=== PATIENT | male | born 1975 | race Caucasian/White ===

== ENCOUNTER 2019-03-02 17:59 | Emergency (ER) | payer SELFPAY ==
--- NOTE | 2019-03-02 18:26 | EDM.PDOC ---
ED HPI GENERAL MEDICAL PROBLEM - General Chief Complaint: Back Pain or Injury Stated Complaint: back pain Time Seen by Provider: 03/02/19 18:15 Source of Information: Reports: Patient, Significant Other. Denies: Old Records (No [facility] records available) History Limitations: Reports: No Limitations - History of Present Illness INITIAL COMMENTS - FREE TEXT/NARRATIVE: The patient was brought to the emergency room via private automobile by his significant other for evaluation of 10/10 bilateral low back pain and spasms, left greater than right, paresthesias to the knees bilaterally. He denies any recent or previous fall, injury, or neurological deficits. The patient does have a known history of moderate degenerative disc disease by his history. The patient did take 650 mg of Tylenol about 13:00 hours with Biofreeze also used at that time. He was also seen by another provider about 2 months ago and did receive IM Toradol at that time. He has not lost any work from his above symptoms. No recent history of abdominal pain, heartburn, nausea, diarrhea, melena, gross hematochezia, or any food intolerance, including fatty foods, etc.. The patient also denies any recent fever, wheezing, dyspnea, etc. with stable chronic cough secondary to his tobacco use by his history. Note that the patient did wake up yesterday morning at about 8 AM with these symptoms. Onset: Unknown/Unsure Onset Date: 03/01/19 Onset Time: 08:00 Duration: Constant Location: Reports: Back, Lower Extremity, Left, Lower Extremity, Right, Radiates to (As above). Denies: Head, Face, Neck, Chest, Abdomen, Upper Extremity, Left, Upper Extremity, Right Quality: Reports: Same as Previous Episode, Stabbing Severity: Severe Improves with: Reports: Rest Worsens with: Reports: Movement Context: Denies: Trauma Treatments [employer] TECH[employer]ICIAN: Reports: Acetaminophen, Other Medication(s) (As above) Bilateral Lower Back Pain Score (Numeric/FACES): 10 - Related Data Allergies Allergy/AdvReac Type Severity Reaction Status Date / Time amoxicillin Allergy Nausea and Verified 03/02/19 18:38 Vomiting Penicillins Allergy Nausea and Verified 03/02/19 18:38 Vomiting Home Meds: Home Meds Acetaminophen [Tylenol] 650 mg PO Q4H PRN 03/02/19 [History] Cyclobenzaprine [Flexeril] 10 mg PO TID PRN #30 tab 03/02/19 [Rx] Menthol [Biofreeze] 1 applic TP ASDIRECTED PRN 03/02/19 [History] Past Medical History Musculoskeletal History: Reports: Arthritis, Back Pain, Chronic, Neck Pain, Chronic, Osteoarthritis. Denies: Fracture Neurological History: Reports: Neuropathy, Peripheral, Other (See Below) Other Neuro History: Occasional paresthesias from his chronic low back pain. Social & Family History - Tobacco Use Smoking Status *Q: Current Every Day Smoker Tobacco Use Within Last Twelve Months: Cigarettes Years of Tobacco use: 25 Packs/Tins Daily: 1 Packs/Tins Daily Comment: Started smoking at age 18 with maximum use of 2 packs per day. Used Tobacco, but Quit: No Smoking Cessation Information Provided To Patient: Yes Second Hand Smoke Exposure: No Second Hand Smoke Education Provided: No - Living Situation & Occupation Living situation: Reports: with Significant Other (Significant other's 4 children with the patient, and the patient also having 2 children from other relationships living in the home). 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 ED EXAM,LOWER BACK PAIN/INJURY - Physical Exam Exam: See Below Exam Limited By: No Limitations General Appearance: Alert, WD/WN, No Apparent Distress Head: Atraumatic, Normocephalic Neck: Normal Inspection, Supple, Non-Tender, Full Range of Motion. No: Lymphadenopathy (L), Lymphadenopathy (R), Thyromegaly Respiratory/Chest: No Respiratory Distress, Lungs Clear, Normal Breath Sounds, No Accessory Muscle Use, Chest Non-Tender. No: Pleural Rub, Retractions Cardiovascular: Normal Peripheral Pulses, Regular Rate, Rhythm, No Edema, No Gallop, No JVD, No Murmur, No Rub. No: Gallop/S3, Gallop/S4, Friction Rub GI/Abdominal: Normal Bowel Sounds, Soft, Non-Tender, No Organomegaly, No Distention, No Abnormal Bruit, No Mass. No: Guarding (Male) Exam: Deferred Rectal (Males) Exam: Deferred Back Exam: Decreased Range of Motion (Secondary to pain), Muscle Spasm (As below ), Paraspinal Tenderness (Moderate bilateral palpation pain with spasms, left greater than right, in the mid lumbar region). No: CVA Tenderness (L), CVA Tenderness (R) Extremities: Normal Inspection, Normal Range of Motion, Non-Tender, No Pedal Edema, Normal Capillary Refill. No: Ivania's Sign Neurological: Alert, Normal Mood/Affect, Normal Dorsiflexion, CN II-XII Intact, Normal Plantar Flexion, Normal Gait, No Motor/Sensory Deficits, Oriented x 3 Psychiatric: Normal Affect, Normal Mood Skin Exam: Warm, Dry, Intact, Normal Color, No Rash, Tattoo(s) (Multiple). No: Diaphoretic, Wound/Incision Lymphatic: No Adenopathy Course - Vital Signs Last Recorded V/S: Last Vital Signs Temp 37.2 C 03/02/19 18:00 Pulse 88 03/02/19 18:00 Resp 16 03/02/19 18:00 BP 120/73 03/02/19 18:00 Pulse Ox 98 03/02/19 18:00 Vital Signs - 24 hr 03/02/19 18:00 Temperature [ 37.2 C Oral] Pulse, 88 Peripheral [ Pulse Oximetry] Respiratory 16 Rate Blood Pressure 120/73 [Upper Arm] O2 Sat by Pulse 98 Oximetry - Orders/Labs/Meds Orders: Active Orders 24 hr Category Date Time Status Obtain Past Medical Record [OM.PC] Routine Oth 03/02/19 18:26 Active Labs: None Meds: Medications Discontinued Medications Generic Name Dose Route Start Last Admin Trade Name Yuriq PRN Reason Stop Dose Admin Ketorolac Tromethamine 60 mg 03/02/19 18:27 03/02/19 18:42 Toradol IM 03/02/19 18:28 60 mg ONETIME ONE Administration Lorazepam 1 mg 03/02/19 18:27 03/02/19 18:42 Ativan IM 03/02/19 18:28 1 mg ONETIME ONE Administration - Radiology Interpretation Free Text/Narrative:: None Departure - Departure Time of Disposition: 18:55 Disposition: Home, Self-Care 01 Condition: Good Clinical Impression: Tobacco abuse counseling Low back pain Qualifiers: Chronicity: acute Back pain laterality: bilateral Sciatica presence: with sciatica Sciatica laterality: bilateral sciatica Qualified Code(s): M54.42 - Lumbago with sciatica, left side Osteoarthritis Qualifiers: Osteoarthritis location: multiple joints Osteoarthritis type: primary Qualified Code(s): M15.0 - Primary generalized (osteo)arthritis - Discharge Information *PRESCRIPTION DRUG MONITORING PROGRAM REVIEWED*: Not Applicable *COPY OF PRESCRIPTION DRUG MONITORING REPORT IN PATIENT QUAN: Not Applicable Prescriptions: Cyclobenzaprine [Flexeril] 10 mg PO TID PRN #30 tab PRN Reason: Spasms Instructions: Chronic Back Pain, [id number] Referrals: Leah Moctezuma MD [Primary Care Provider] - Forms: ED Department Discharge, ED Return to Work/School Form Additional Instructions: 1. Follow up with your regular provider in 10-14 days as needed, if symptoms persist. Bring these discharge instructions with you to that visit.. 2. Tylenol 650 mg by mouth every 4 hours and/or OTC ibuprofen 2-3 tabs by mouth every 6 hours with food as directed./needed. You may stagger these medications for 48-72 hours only, which essentially means that you are receiving a pain medication about every 2 hours. Next dose of ibuprofen in 6 hours as needed secondary to medications given in the emergency room. 3. Sedation precautions with no driving, etc. for 12 hours because of emergency room medications. 4. May take an additional Flexeril and 4 hours as needed with sedation precautions with this medication 5. Advance activity slowly as tolerated/directed 6. BenGay or equivalent, heating pad, and/or ice packs as directed. 7. Stop all tobacco use SALVATORE as directed/per provided information and consider contacting Quit LIne, etc.. 8. Please remember that we are ALWAYS here for you and want to answer any questions you may have. Feel free to call the hospital any time and we call you back SALVATORE. 9. Immediately after this visit verify that your cellular telephone's voicemail has been activated and is empty. Also verify that your home telephone 's answering machine is operating properly and has space to receive messages. Note that it is sometimes necessary for us to be able to contact you at a later date to discuss your medical care. - Problem List & Annotations (1) Low back pain SNOMED Code(s): 854472201 Code(s): M54.5 - LOW BACK PAIN Status: Acute Priority: High Current Visit: No Onset Date: 03/01/19 Annotation/Comment:: Exacerbation of his chronic low back pain as above with no history of recent injury, etc. No neurological deficits despite his paresthesias as above. Various therapeutic options were discussed. IM Ativan and IM Toradol given with patient also provided an emergency room prescription for Flexeril. Sedation precautions given. Work excuse provided. Activity restrictions discussed. Patient plans to follow-up with his regular provider in the near future for scheduling of possible further workup including orthopedic referral, etc. Qualifiers: Chronicity: acute Back pain laterality: bilateral Sciatica presence: with sciatica Sciatica laterality: bilateral sciatica Qualified Code(s): M54.42 - Lumbago with sciatica, left side; M54.41 - Lumbago with sciatica, right side (2) Osteoarthritis SNOMED Code(s): 801089029 Code(s): M19.90 - UNSPECIFIED OSTEOARTHRITIS, UNSPECIFIED SITE Status: Chronic Priority: Medium Current Visit: No Annotation/Comment:: Otherwise stable by history Qualifiers: Osteoarthritis location: multiple joints Osteoarthritis type: primary Qualified Code(s): M15.0 - Primary generalized (osteo)arthritis (3) Tobacco abuse counseling SNOMED Code(s): 046961193, 537043979, 239220052 Code(s): Z71.6 - TOBACCO ABUSE COUNSELING Status: Chronic Priority: Medium Current Visit: No Annotation/Comment:: Tobacco cessation strongly encouraged with information provided at discharge. - Problem List Review Problem List Initiated/Reviewed/Updated: Yes - My Orders Last 24 Hours: My Active Orders 03/02/19 18:26 Obtain Past Medical Record [OM.PC] Routine - Assessment/Plan Last 24 Hours: My Active Orders 03/02/19 18:26 Obtain Past Medical Record [OM.PC] Routine Assessment:: As above Plan: As above. Extensive precautions were given to the patient and his significant other, who are in agreement with the treatment plan. See Patient Instructions for further treatment and plan.
[2019-03-02] MEDS ORDERED: LORazepam 2 MG/ML SDV IM ONE (18:27)
[2019-03-02] MEDS ORDERED: Ketorolac 60 MG/2 ML SDV IM ONE (18:27)
== END 2019-03-02 18:50 | disposition home or self-care (01) ==
LOC: LL.ED 17:59
DX: M54.42 Lumbago with sciatica, left side (principal); M54.41 Lumbago with sciatica, right side; M15.0 Primary generalized (osteo)arthritis; Z71.6 Tobacco abuse counseling; F17.210 Nicotine dependence, cigarettes, uncomplicated; Z88.0 Allergy status to penicillin; Z88.1 Allergy status to other antibiotic agents
CPT/HCPCS: 96372; 99283; J1885; J2060

== ENCOUNTER 2022-07-24 16:52 | Emergency (ER) | payer MEDICAID ==
[2022-07-24 17:00] VITALS: BP 127/94; PULSE 99
[2022-07-24] MEDS ORDERED: Promethazine 25 MG Tab PO PRN (18:55)
[2022-07-25 06:14] LABS: CORONAVIRUS COVID-19 NAA NEGATIVE (NEGATIVE); RESPIRATORY SYNCYTIAL VIR NAA NEGATIVE (NEGATIVE)
== END 2022-07-24 19:15 | disposition home or self-care (01) ==
LOC: LL.ED 16:52
DX: J10.1 Influenza due to other identified influenza virus with other respiratory manifestations (principal); R11.2 Nausea with vomiting, unspecified; R19.7 Diarrhea, unspecified; Z88.0 Allergy status to penicillin; Z91.011 Allergy to milk products; Z91.013 Allergy to seafood; Z20.822 Contact with and (suspected) exposure to COVID-19
CPT/HCPCS: 0241U; 99283; 99284

== ENCOUNTER 2022-10-17 16:22 | Emergency (ER) | payer MEDICAID ==
[2022-10-17 16:35] VITALS: PULSE 89
[2022-10-17] MEDS ORDERED: Ketorolac 30 MG/ML SDV IM ONE (16:53)
[2022-10-17 17:47] VITALS: BP 108/65
== END 2022-10-17 17:10 | disposition home or self-care (01) ==
LOC: LL.ED 16:22
DX: M54.6 Pain in thoracic spine (principal); J45.909 Unspecified asthma, uncomplicated; M19.90 Unspecified osteoarthritis, unspecified site; Z72.0 Tobacco use; Z88.0 Allergy status to penicillin; Z91.011 Allergy to milk products; Z91.030 Bee allergy status
CPT/HCPCS: 96372; 99283; J1885